=== PATIENT | male | born 1970 | race Caucasian/White ===

== ENCOUNTER → 2016-05-01 | Outpatient (CLI) | payer MEDICARE ==
[~2016-05-01] MED LIST: CORGARD20 MG PO; DESYREL50 MG PO; FOLIC ACID1 MG PO; HYDROCODON-ACE1 EAC5 PO; LASIX PO; OMEPRAZOLE40 M1 PO; PERCOCET10 PO; POTASSIUM CHLO10 ME1 PO; VITAMIN B-1000 MCG/1 INJ
== END | disposition home or self-care (01) ==
LOC: CSSDAY 09:02
DX: E83.119 Hemochromatosis, unspecified (principal); Z79.899 Other long term (current) drug therapy
CPT/HCPCS: 96365; 96366; J0895

== ENCOUNTER → 2016-05-08 | Outpatient (CLI) | payer MEDICARE | END | disposition home or self-care (01) | LOC: CSSDAY 10:17 | DX: E83.119 Hemochromatosis, unspecified (principal); Z79.899 Other long term (current) drug therapy | CPT/HCPCS: 96365; 96366; J0895 ==

== ENCOUNTER → 2016-05-15 | Outpatient (CLI) | payer MEDICARE | END | disposition home or self-care (01) | LOC: CSSDAY 09:07 | DX: E83.119 Hemochromatosis, unspecified (principal); Z79.899 Other long term (current) drug therapy | CPT/HCPCS: 96365; 96366; J0895 ==

== ENCOUNTER → 2016-05-22 | Outpatient (CLI) | payer MEDICARE | END | disposition home or self-care (01) | LOC: CSSDAY 10:14 | DX: E83.119 Hemochromatosis, unspecified (principal); Z79.899 Other long term (current) drug therapy | CPT/HCPCS: 96365; 96366; J0895 ==

== ENCOUNTER → 2016-05-31 | Outpatient (CLI) | payer MEDICARE | END | disposition home or self-care (01) | LOC: CSSDAY 10:46 | DX: E83.119 Hemochromatosis, unspecified (principal); Z79.899 Other long term (current) drug therapy | CPT/HCPCS: 96365; 96366; J0895 ==

== ENCOUNTER 2016-07-04 11:45 | Observation (INO) | payer MEDICARE ==
[~2016-07-04 11:45] MED LIST changes: -CORGARD20 MG PO; -LASIX PO; -OMEPRAZOLE40 M1 PO; -PERCOCET10 PO; -POTASSIUM CHLO10 ME1 PO
[2016-07-04] MEDS ORDERED: CORGARD20 MG PO (14:12)
[2016-07-04] MEDS ORDERED: LASIX PO (14:12)
[2016-07-04] MEDS ORDERED: OMEPRAZOLE40 M1 PO (14:13)
[2016-07-04] MEDS ORDERED: POTASSIUM CHLO10 ME1 PO (14:14)
[2016-07-04] MEDS ORDERED: PERCOCET10 PO (14:14)
== END 2016-07-05 06:05 ==
LOC: C2A 11:45
DX: D69.6 Thrombocytopenia, unspecified (principal); D64.9 Anemia, unspecified; Z98.890 Other specified postprocedural states
CPT/HCPCS: 36430; 86850; 86900; 86901; 86923; 96372; 96374; 96376; G0378; J1200; J1940; P9016; P9035